=== PATIENT | male | born 1985 | race Caucasian/White ===

== ENCOUNTER 2017-01-23 18:09 | Emergency (ER) ==
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
[2017-01-23] MEDS ORDERED: TORADOL IM ONE (19:36)
[2017-01-23] MEDS ORDERED: NORFLEX IM ONE (19:36)
[2017-01-23] MEDS ORDERED: DECADRON IM ONE (19:37)
[2017-01-23 20:10] VITALS: BP 121/73
== END 2017-01-23 20:19 | disposition home or self-care (01) ==
LOC: P.ED 18:09
DX: G89.21 Chronic pain due to trauma (principal); M54.9 Dorsalgia, unspecified; M54.2 Cervicalgia; V89.2XXS Person injured in unspecified motor-vehicle accident, traffic, sequela
CPT/HCPCS: 96372; J1885; J2360